=== PATIENT | female | born 1965 | race Caucasian/White ===

== ENCOUNTER 2019-09-07 09:26 | Day surgery (SDC) | payer BC ==
[2019-09-07] MEDS ORDERED: Decadron 4 MG INJ IV ONE (09:27)
[2019-09-07] MEDS ORDERED: Xylocaine-Mpf 2% 5 Ml Vial IJ ONE (09:27)
[2019-09-07] MEDS ORDERED: DIPRIVAN 200 MG/20 ML IV ONE (10:52)
[2019-09-07] MEDS ORDERED: Ketamine HCl 50 MG/ML ONE (10:52)
--- NOTE | 2019-09-07 14:32 | XRAY ---
30 seconds fluoroscopy time in surgery for left C2-C4 MBB.
--- NOTE | 2019-09-07 14:35 | XRAY ---
Indication: Left C2-C4 MBB. Intraoperative fluoroscopy was provided for 30 seconds. 4 digital spot images submitted for interpretation demonstrates posterior needle tips projecting over the expected course of the left C2-C4 nerve roots. Correlate with intraoperative findings/report.
[2019-09-07] MEDS ORDERED: Lactated Ringers 1,000 ML IV ONE (17:03)
== END 2019-09-07 11:30 | disposition home or self-care (01) ==
LOC: SDC-PAIN 09:26 → SDC 09:26 → SDC-PAIN 11:30
PROVIDERS: ATTEND Psychiatry & Neurology Pain Medicine
DX: M47.812 Spondylosis without myelopathy or radiculopathy, cervical region (principal); E11.9 Type 2 diabetes mellitus without complications; Z79.899 Other long term (current) drug therapy
CPT/HCPCS: 64490; 64491; 72020; 77002; 82962; J1100; J2704

== ENCOUNTER 2019-10-19 09:48 | Day surgery (SDC) | payer BC ==
[2019-10-19] MEDS ORDERED: Xylocaine-Mpf 2% 5 Ml Vial IJ ONE (09:49)
[2019-10-19] MEDS ORDERED: Decadron 4 MG INJ IV ONE (09:49)
[2019-10-19] MEDS ORDERED: DIPRIVAN 200 MG/20 ML IV ONE (11:57)
[2019-10-19] MEDS ORDERED: Ketamine HCl 50 MG/ML ONE (11:58)
--- NOTE | 2019-10-19 13:20 | XRAY ---
Indication: Right C2-C4 MBB. Intraoperative fluoroscopy was provided for 29 seconds. 2 digital spot images submitted for interpretation demonstrates posterior needle tips projecting over the expected course of the right C2-C4 nerve roots. Correlate with intraoperative findings/report.
--- NOTE | 2019-10-19 13:30 | XRAY ---
29 seconds fluoroscopy time in surgery for right C3-C4 MBB.
[2019-10-19] MEDS ORDERED: Lactated Ringers 1,000 ML IV ONE (13:31)
== END 2019-10-19 12:25 | disposition home or self-care (01) ==
LOC: SDC-PAIN 09:48
PROVIDERS: ATTEND Psychiatry & Neurology Pain Medicine
DX: M47.812 Spondylosis without myelopathy or radiculopathy, cervical region (principal); E11.9 Type 2 diabetes mellitus without complications
CPT/HCPCS: 64490; 64491; 72020; 77002; 82962; J1100; J2704

== ENCOUNTER 2019-11-08 10:34 | Observation (INO) | payer BC ==
--- NOTE | 2019-11-08 10:44 | ERPHSYRPT ---
- History of Present Illness Time Seen by Provider: 11/08/19 10:44 Source: patient Exam Limitations: no limitations Physician History: Patient is a 54-year-old female with a past medical history significant for diabetes mellitus, hyperlipidemia, prior hysterectomy for cervical cancer, chronic neck pain in which she takes [place], as well as obesity presents with a chief complaint of abdominal pain. Onset reported was around 1-2 o'clock this morning. She endorsed having a sharp/cramping pain that awoke her from sleeping. The pain is primarily located to her epigastrium in addition to her right upper quadrant but is now associated with left lower quadrant abdominal pain. The pain is constant and moderate to mild in severity. Her pain is associated with one episode of nonbilious/nonbloody vomiting. She denies obstipation, diarrhea, constipation, melena in addition to hematochezia. She denies known history of cholelithiasis or gallbladder disease. She denies alcohol use, IV drug abuse and tobacco use. Fever or chills. Associated Symptoms: nausea, vomiting, abdominal pain, No chest pain, No fever, No headaches Allergies/Adverse Reactions: No Known Drug Allergies Allergy (Verified 11/08/19 11:05) Home Medications: Atorvastatin Calcium [Lipitor] 20 mg PO HS 11/08/19 [History] Cyclobenzaprine HCl [Flexeril] 5 mg PO DAILY PRN 11/08/19 [History] Glyburide 5 mg PO DAILY 11/08/19 [History] Hydrocodone/APAP 5-325 Tab^^^ [Crook 5-325 Tablet^^^] 1 tab PO Q6HPRN PRN MDD 6 11/08/19 [History] - Review of Systems Constitutional: No Fever, No Chills Eyes: No Symptoms Ears, Nose, & Throat: No Symptoms Respiratory: No Symptoms, No Cough, No Cyanosis, No Dyspnea, No Dyspnea on Exertion ([place]) Cardiac: No Chest Pain, No Edema, No Palpitations Abdominal/Gastrointestinal: Abdominal Pain, Nausea, Vomiting, Appetite Changes, No Constipation, No Hematochezia, No Melena Genitourinary Symptoms: No Symptoms Musculoskeletal: No Symptoms Skin: No Symptoms Neurological: No Symptoms Psychological: No Symptoms Endocrine: No Symptoms All Other Systems: Reviewed and Negative - Past Medical History Pertinent Past Medical History: Yes Neurological History: No Pertinent History ENT History: No Pertinent History Cardiac History: No Pertinent History Respiratory History: No Pertinent History Endocrine Medical History: Diabetes Type II Musculoskeletal History: No Pertinent History GI Medical History: No Pertinent History, Hemorrhoids History: No Pertinent History Psycho-Social History: No Pertinent History Female Reproductive Disorders: Cervical Cancer - Past Surgical History Past Surgical History: Yes Neuro Surgical History: No Pertinent History Cardiac: No Pertinent History Respiratory: No Pertinent History Gastrointestinal: No Pertinent History, Hemorrhoidectomy Genitourinary: No Pertinent History Musculoskeletal: No Pertinent History Female Surgical History: Hysterectomy - Social History Smoking Status: Never smoker Exposure to second hand smoke: No Drug Use: none - Nursing Vital Signs Nursing Vital Signs: Initial Vital Signs Temperature 98.0 F 11/08/19 11:00 Pulse Rate 94 H 11/08/19 11:00 Respiratory Rate 20 11/08/19 11:00 Blood Pressure 175/113 11/08/19 11:00 O2 Sat by Pulse Oximetry 99 11/08/19 11:00 Pain Scale Pain Intensity 4 - Physical Exam General Appearance: mild distress, obese Eye Exam: PERRL/EOMI, eyes nml inspection, No scleral icterus, No EOM palsy/ anisocoria Ears, Nose, Throat Exam: normal ENT inspection, pharynx normal, moist mucous membranes Neck Exam: normal inspection, supple Respiratory Exam: normal breath sounds, lungs clear, airway intact, diminished breath sounds, No chest tenderness, No respiratory distress, No accessory muscle use Cardiovascular Exam: regular rate/rhythm, normal heart sounds, normal peripheral pulses, capillary refill <2 sec, No murmur, No friction rub Gastrointestinal/Abdomen Exam: soft, normal bowel sounds, tenderness (RUQ tenderness and LLQ tenderness. + Hyde sign), No distention, No mass, No ecchymosis, No pulsatile mass Pelvic Exam: not done, deferred Back Exam: normal inspection Extremity Exam: normal inspection Neurologic Exam: alert, oriented x 3, cooperative - Course Nursing assessment & vital signs reviewed: Yes EKG Interpreted by Me: RATE, Sinus Rhythm, Left [place] Deviation, NORMAL QRS, Other (Vent rate 81 bpm, ME interval 146 ms, QRS duration 76 ms, QT/QTc 382/441 ms, no evidence of acute myocardial ischemia or injury) - CT Exams Abdomen/Pelvis CT Interpretation: Other (Renal cyst, right adenoma) - Radiology Ultrasound Exam Gallbladder Ultrasound: tele radiology report (Impacted gallstone in gallbladder neck), No Mass, gall bladder stones (1.5 cm gallstone near the neck of the gallbladder. No gallbladder wall thickening or pericholecystic fluid. Common bile duct measures 7.7 mm and in intrahepatic biliary distention), Other Ordered Tests: Active Orders 24 hr Category Date Time Status Up With Assistance ROUTINE Activity 11/08/19 14:15 Active Code Status Order ROUTINE Care 11/08/19 14:15 Active EKG-ER Only STAT Care 11/08/19 10:53 Completed IV Care Q6H Care 11/08/19 14:15 Active IV Insertion STAT Care 11/08/19 10:53 Completed NPO (ED) STAT Care 11/08/19 10:53 Completed Vital Signs Q4H Care 11/08/19 14:15 Active Weight,Daily 0600 Care 11/08/19 14:15 Active NPO Diet 11/08/19 14:15 Active ABDOMEN AND PELVIS W CONTRAST [CT] Stat Exams 11/08/19 10:54 Completed GALLBLADDER [US] Stat Exams 11/08/19 12:43 Completed BMP Stat Lab 11/08/19 11:10 Completed CBC W DIFF AM.LAB Lab 11/09/19 04:00 Ordered CBC W DIFF Stat Lab 11/08/19 11:10 Completed CMP AM.LAB Lab 11/09/19 04:00 Ordered Hepatic Function Panel Stat Lab 11/08/19 11:10 Completed LIPASE Stat Lab 11/08/19 11:10 Completed UA W/RFX UR CULTURE Stat Lab 11/08/19 11:00 Completed Transfer Order Routine Transfer 11/08/19 Completed Medication Summary Generic Name Dose Route Start Last Admin Trade Name Freq PRN Reason Stop Dose Admin Hydrocodone Bitart/Acetaminophen 1 tab 11/08/19 17:52 Crook 5/325 Mg PO 11/13/19 17:51 Q4H PRN PRN PAIN Cyclobenzaprine HCl 5 mg 11/08/19 14:54 Cyclobenzaprine 10 Mg PO 12/08/19 14:53 QDP PRN Glyburide 5 mg 11/09/19 10:00 Micronase 5 Mg PO 12/09/19 09:59 DAILY GEMMA Sodium Chloride 1,000 mls @ 100 mls/hr 11/08/19 15:30 11/08/19 17:49 Sodium Chloride 0.9% 1000 Ml IV 12/08/19 15:29 100 mls/hr .Q10H GEMMA Administration Ketorolac Tromethamine 30 mg 11/08/19 14:15 11/08/19 17:40 Toradol 30 Mg Injection IV 11/13/19 14:14 30 mg Q6H PRN PRN Administration PAIN Morphine Sulfate 4 mg 11/08/19 14:15 11/08/19 14:37 Morphine Sulfate 4 Mg Inj IV 11/13/19 14:14 4 mg Q4H PRN PRN Administration PAIN Morphine Sulfate 3 mg 11/08/19 17:51 Morphine Sulfate 4 Mg Inj IV 11/13/19 17:50 Q1H PRN PAIN Non-Formulary Medication 1 each 11/09/19 10:00 Hold Metformin Products For 48 Hours 11/10/19 10:01 DAILY GEMMA Ondansetron HCl 4 mg 11/08/19 14:15 11/08/19 17:40 Zofran 4 Mg/2 Ml Vial IV 12/08/19 14:14 4 mg Q6H PRN PRN Administration NAUSEA/VOMITING Ondansetron HCl 4 mg 11/08/19 17:52 Zofran 4 Mg/2 Ml Vial IV 12/08/19 17:51 Q6H PRN PRN NAUSEA/VOMITING Simvastatin 20 mg 11/08/19 22:00 Zocor 20mg PO 12/08/19 21:59 HS GEMMA Discontinued Medications Generic Name Dose Route Start Last Admin Trade Name Freq PRN Reason Stop Dose Admin Bupivacaine HCl Confirm 11/08/19 15:35 Sensorcaine 0.25% 10 Ml Administered 11/08/19 15:36 Dose 10 ml .ROUTE .STK-MED ONE Dexamethasone Sodium Phosphate Confirm 11/08/19 16:47 Decadron 4 Mg Inj Administered 11/08/19 16:48 Dose 8 mg .ROUTE .STK-MED ONE Esmolol HCl Confirm 11/08/19 16:27 Brevibloc 100 Mg/10 Ml Administered 11/08/19 16:28 Dose 100 mg IV .STK-MED ONE Fentanyl Citrate Confirm 11/08/19 15:52 Sublimaze 100 Mcg/2 Ml Administered 11/08/19 15:53 Dose 100 mcg .ROUTE .STK-MED ONE Dextrose/Lactated Ringer's 1,000 mls @ 100 mls/hr 11/08/19 14:15 11/08/19 14: 36 Dextrose 5%-Lr Iv Solution 1000 Ml IV 12/08/19 14:14 100 mls/hr .Q10H GEMMA Administration Cefoxitin Sodium 2 gm in 50 mls @ 100 mls/hr 11/08/19 16:00 11/08/19 15:36 Mefoxin 2 Gm Premix IV 11/08/19 18:00 100 mls/hr ONCALLTOOR GEMMA Administration Lactated Ringer's Confirm 11/08/19 15:35 Lactated Ringers Administered 11/08/19 15:36 Dose 1,000 mls @ ud IV .STK-MED ONE Ketorolac Tromethamine 15 mg 11/08/19 10:53 11/08/19 11:14 Toradol 30 Mg Injection IV 11/08/19 10:54 15 mg STAT ONE Administration Ketorolac Tromethamine Confirm 11/08/19 11:13 Toradol 30 Mg Injection Administered 11/08/19 11:14 Dose 30 mg .ROUTE .STK-MED ONE Morphine Sulfate 4 mg 11/08/19 10:53 11/08/19 11:14 Morphine Sulfate 4 Mg Inj IV 11/08/19 10:54 4 mg STAT ONE Administration Morphine Sulfate Confirm 11/08/19 11:13 Morphine Sulfate 4 Mg Inj Administered 11/08/19 11:14 Dose 4 mg .ROUTE .STK-MED ONE Ondansetron HCl 4 mg 11/08/19 10:53 11/08/19 11:14 Zofran 4 Mg/2 Ml Vial IV 11/08/19 10:54 4 mg STAT ONE Administration Ondansetron HCl Confirm 11/08/19 11:12 Zofran 4 Mg/2 Ml Vial Administered 11/08/19 11:13 Dose 4 mg .ROUTE .STK-MED ONE Ondansetron HCl Confirm 11/08/19 16:47 Zofran 4 Mg/2 Ml Vial Administered 11/08/19 16:48 Dose 4 mg .ROUTE .STK-MED ONE Propofol Confirm 11/08/19 15:52 Diprivan 200 Mg/20 Ml Administered 11/08/19 15:53 Dose 200 mg IV .STK-MED ONE Rocuronium [place] Confirm 11/08/19 15:52 Zemuron 100 Mg/10 Ml Administered 11/08/19 15:53 Dose 30 mg .ROUTE .STK-MED ONE Succinylcholine Chloride Confirm 11/08/19 15:52 Quelicin Fliptop 200 Mg/10 Ml Administered 11/08/19 15:53 Dose 100 mg .ROUTE .STK-MED ONE Sugammadex Sodium Confirm 11/08/19 16:47 Bridion 200mg/2ml Administered 11/08/19 16:48 Dose 200 mg IV .STK-MED ONE Lab/Rad Data: Laboratory Result Diagrams 11/08/19 11:10 11/08/19 11:10 Laboratory Results 11/08/19 11/08/19 11/08/19 Range/Units 11:10 11:10 11:00 WBC 11.0 H (4.0-10.5) K/mm3 RBC 4.97 (4.1-5.4) M/mm3 Hgb 14.0 (12.0-16.0) gm/dl Hct 42.2 (35-47) % MCV 84.9 (78-100) fl MCH 28.2 (26-32) pg MCHC 33.2 (32-36) g/dl RDW 14.0 (11.5-14.0) % Plt Count 371 (150-450) K/mm3 MPV 9.3 (7.5-11.0) fl Gran % 76.5 H (36.0-66.0) % Eos # (Auto) 0.03 (0-0.5) Absolute Lymphs (auto) 2.11 (1.0-4.6) Absolute Monos (auto) 0.41 (0.0-1.3) Lymphocytes % 19.1 L (24.0-44.0) % Monocytes % 3.7 (0.0-12.0) % Eosinophils % 0.3 (0.00-5.0) % Basophils % 0.4 (0.0-0.4) % Absolute Granulocytes 8.43 H (1.4-6.9) Basophils # 0.04 (0-0.4) Sodium 138 (137-145) mmol/L Potassium 3.9 (3.5-5.1) mmol/L Chloride 100 (98-107) mmol/L Carbon Dioxide 25 (22-30) mmol/L Anion Gap 16.6 H (5-15) MEQ/L BUN 11 (7-17) mg/dL Creatinine 0.64 (0.52-1.04) mg/dL Estimated GFR > 60.0 ML/MIN Glucose 218 H (74-106) mg/dL Calcium 10.6 H (8.4-10.2) mg/dL Total Bilirubin 0.80 (0.2-1.3) mg/dL Direct Bilirubin 0.3 (0.0-0.4) mg/dL AST 23 (14-36) U/L ALT 24 (0-35) U/L Alkaline Phosphatase 112 (38-126) U/L Serum Total Protein 9.1 H (6.3-8.2) g/dL Albumin 4.9 (3.5-5.0) g/dL Lipase 58 (23-300) U/L Urine Color YELLOW (YELLOW) Urine Appearance CLEAR (CLEAR) Urine pH 6.0 (5-6) Ur Specific [place] 1.016 (1.005-1.025) Urine Protein 30 (Negative) Urine Ketones NEGATIVE (NEGATIVE) Urine Blood NEGATIVE (0-5) Vincent/ul Urine Nitrite NEGATIVE (NEGATIVE) Urine Bilirubin NEGATIVE (NEGATIVE) Urine Urobilinogen NEGATIVE (0-1) mg/dL Ur Leukocyte Esterase NEGATIVE (NEGATIVE) Urine WBC (Auto) 0-2 (0-5) /HPF Urine RBC (Auto) 0-2 (0-2) /HPF U Hyaline Cast (Auto) 0-2 (0-2) /LPF U Epithel Cells (Auto) RARE (FEW) /HPF Urine Bacteria (Auto) NONE (NEGATIVE) /HPF Other Casts (Auto) NEGATIVE (NEGATIVE) /LPF Urine Mucus (Auto) SLIGHT (NEGATIVE) /HPF Urine Culture Reflexed NO (NO) Urine Glucose NEGATIVE (NEGATIVE) mg/dL - Progress Progress: unchanged Progress Note: 11/08/19 21:31 Nontoxic in appearance. Labs, CT and ultrasound were reviewed. It appears the patient has an impacted gallstone in the neck of the gallbladder which is likely the cause of her symptoms at this time. Ultimately, the patient was admitted to the medicine service with the plan for general surgery with a consult for possible cholecystectomy. She did not appear to have an infection at this time, specifically cholecystitis or any evidence to suggest choledocholithiasis. The patient was updated with her plan for admission and agreed. She stated her pain had improved but continue to persist. Discussed with : Luigi, Janell (Dr. Bah with general surgery. Dr. Bah with general surgery agrees to consult and recommends medical admission. Dr. Martinez agreed to admit.) Will see patient in: hospital (observation) Counseled pt/family regarding: lab results, diagnosis, rad results - Departure Departure Disposition: Observation Clinical Impression: Gallstone (impacted), Cholelithiasis, Renal cyst, Adenoma Condition: Stable Critical Care Time: No
[2019-11-08] MEDS ORDERED: Zofran 4 MG/2 ML VIAL IV ONE (10:53)
[2019-11-08] MEDS ORDERED: MORPHINE SULFATE 4 MG INJ IV ONE (10:53)
[2019-11-08] MEDS ORDERED: TORAdol 30 mg Injection IV ONE (10:53)
[2019-11-08] MEDS ORDERED: Zofran 4 MG/2 ML VIAL ONE ×2 (11:12→16:47)
[2019-11-08] MEDS ORDERED: MORPHINE SULFATE 4 MG INJ ONE (11:13)
[2019-11-08] MEDS ORDERED: TORAdol 30 mg Injection ONE (11:13)
[2019-11-08 11:18] LABS: Absolute Neutrophil Ct (ANC) 8.43 (1.4-6.9); BASOPHIL % 0.4 % (0.0-0.4); Basophil (Absolute #) 0.04 (0-0.4); Eosinophil % 0.3 % (0.00-5.0); Eosinophil (Absolute #) 0.03 (0-0.5); Hematocrit 42.2 % (35-47); Lymphocyte (Absolute #) 2.11 (1.0-4.6); Lymphocytes % 19.1 % (24.0-44.0); Mean Cell Volume 84.9 fl (78-100); Mean Corpuscular Hemoglobin 28.2 pg (26-32); Mean Corpuscular Hgb Concent. 33.2 g/dl (32-36); Mean Platelet Volume 9.3 fl (7.5-11.0); Monocyte (Absolute #) 0.41 (0.0-1.3); Monocytes % 3.7 % (0.0-12.0); Neutrophil % 76.5 % (36.0-66.0); Platelet Count 371 K/mm3 (150-450); Red Blood Count 4.97 M/mm3 (4.1-5.4)
[2019-11-08 11:20] LABS: Appearance CLEAR (CLEAR); Bilirubin NEGATIVE (NEGATIVE); Blood NEGATIVE Ery/ul (0-5); Epithelial Cells RARE /HPF (FEW); Glucose NEGATIVE (NEGATIVE); Hyaline Casts 0-2 /LPF (0-2); Ketones NEGATIVE (NEGATIVE); Leukocyte Esterase NEGATIVE (NEGATIVE); Mucus SLIGHT /HPF (NEGATIVE); Nitrite NEGATIVE (NEGATIVE); Protein,Urine Dip 30 (Negative); Specific Gravity 1.016 (1.005-1.025); Urobilinogen NEGATIVE mg/dL (0-1)
[2019-11-08 11:24] LABS: RBC 0-2 /HPF (0-2); WBC 0-2 /HPF (0-5)
[2019-11-08 11:34] LABS: ALBUMIN 4.9 g/dL (3.5-5.0); ALKALINE PHOSPHATASE 112 U/L (38-126); ANION GAP 16.6 MEQ/L (5-15); BLOOD UREA NITROGEN 11 mg/dL (7-17); CHLORIDE 100 mmol/L (98-107); Calcium 10.6 mg/dL (8.4-10.2); Carbon Dioxide 25 mmol/L (22-30); Creatinine 1 0.64 mg/dL (0.52-1.04); Direct Bilirubin 0.3 mg/dL (0.0-0.4); Glucose 218 mg/dL (74-106); LIPASE 58 U/L (23-300); Potassium 3.9 mmol/L (3.5-5.1); SGOT/AST 23 U/L (14-36); SGPT/ALT 24 U/L (0-35); SODIUM 138 mmol/L (137-145); Total Protein 9.1 g/dL (6.3-8.2)
--- NOTE | 2019-11-08 12:20 | XRAY ---
Indication: Abdomen pain. Nausea and vomiting. Multiple contiguous axial images obtained through the abdomen and pelvis using 80 cc Isovue 370 contrast only. Comparison: December 19, 2015 Lung bases clear with stable left lower lobe bullae. Heart is not enlarged. Noncontrasted stomach and bowel loops appear nonobstructed. Normal appendix. There is minimal/mild diffuse scattered colonic fecal debris greatest in the ascending and transverse colon. No free fluid/air. Stable [address] proven right adrenal adenoma. Right kidney again demonstrates a few cysts, largest a peripelvic cyst measuring 2.8 cm. Previous hysterectomy with multiple bilateral pelvic surgical clips. Remaining liver, gallbladder, pancreas, spleen, adrenal glands, kidneys, ureters, bladder, and aorta appear unremarkable. No pathologic retroperitoneal lymphadenopathy. Osseous structures intact. Impression: 1. Mild fecal stasis without obstruction. 2. Stable right renal cysts and right adrenal adenoma. 3. Remaining CT abdomen/pelvis with contrast exam is negative
--- NOTE | 2019-11-08 14:11 | XRAY ---
Indication: Right upper quadrant abdominal pain. Two-dimensional gallbladder sonogram performed. Comparison: None Pancreas not well-seen due to overlying bowel gas. Gallbladder demonstrates 1.5 cm stone near the neck of the gallbladder. No gallbladder wall thickening or pericholecystic fluid. Common bile duct measures 7.7 mm. No intrahepatic biliary distention. Visualized portions of liver unremarkable. Right kidney measures 10.3 cm in length with a 3 cm upper pole cyst. Impression: 1. Cholelithiasis without cholecystitis. 2. Nonvisualization of the pancreas. 3. Incidental right renal cyst
[2019-11-08] MEDS ORDERED: Zofran 4 MG/2 ML VIAL IV PRN ×2 (14:15→17:52)
[2019-11-08] MEDS ORDERED: TORAdol 30 mg Injection IV PRN (14:15)
[2019-11-08] MEDS ORDERED: Dextrose 5%-Lr IV Solution 1000 ML 1,000 ML IV SCH (14:15)
[2019-11-08] MEDS ORDERED: MORPHINE SULFATE 4 MG INJ IV PRN ×2 (14:15→17:51)
[2019-11-08] MEDS ORDERED: NON-FORMULARY ITEM (Cyclobenzaprine Hcl [Flexeril] 5 MG) PO PRN (14:50)
[2019-11-08] MEDS ORDERED: Cyclobenzaprine 10 MG PO PRN (14:54)
[2019-11-08] MEDS: Sodium Chloride 0.9% 1000 ML 1,000 ML IV SCH ×2 (15:34→17:49)
[2019-11-08] MEDS ORDERED: Sensorcaine 0.25% 10 ML ONE (15:35)
[2019-11-08] MEDS ORDERED: Lactated Ringers 1,000 ML IV ONE (15:35)
[2019-11-08] MEDS ORDERED: Quelicin Fliptop 200 MG/10 ML ONE (15:52)
[2019-11-08] MEDS ORDERED: DIPRIVAN 200 MG/20 ML IV ONE (15:52)
[2019-11-08] MEDS ORDERED: SUBLIMAZE 100 MCG/2 ML ONE (15:52)
[2019-11-08] MEDS ORDERED: Zemuron 100 MG/10 ML ONE (15:52)
[2019-11-08] MEDS ORDERED: MEFOXIN 2 GM PREMIX** 2 GM/50 ML ML IV SCH (16:00)
[2019-11-08] MEDS ORDERED: BREVIBLOC 100 MG/10 ML IV ONE (16:27)
[2019-11-08] MEDS ORDERED: BRIDION 200MG/2ML IV ONE (16:47)
[2019-11-08] MEDS ORDERED: Decadron 4 MG INJ ONE (16:47)
[2019-11-08] MEDS ORDERED: ZOCOR 20MG PO SCH (22:00)
[2019-11-08] MEDS ORDERED: NON-FORMULARY ITEM (Atorvastatin Calcium [Lipitor] 20 MG) PO SCH (22:00)
[2019-11-08] MEDS: NORCO 5/325 MG PO PRN (22:44)
[2019-11-09 05:10] LABS: ALBUMIN 3.9 g/dL (3.5-5.0); ALKALINE PHOSPHATASE 85 U/L (38-126); ANION GAP 13.2 MEQ/L (5-15); BLOOD UREA NITROGEN 13 mg/dL (7-17); CHLORIDE 101 mmol/L (98-107); Calcium 8.9 mg/dL (8.4-10.2); Carbon Dioxide 25 mmol/L (22-30); Creatinine 1 0.63 mg/dL (0.52-1.04); Glucose 270 mg/dL (74-106); Potassium 4.3 mmol/L (3.5-5.1); SGOT/AST 20 U/L (14-36); SGPT/ALT 23 U/L (0-35); SODIUM 135 mmol/L (137-145); Total Protein 7.5 g/dL (6.3-8.2)
[2019-11-09 05:13] LABS: Absolute Neutrophil Ct (ANC) 8.47 (1.4-6.9); BASOPHIL % 0.1 % (0.0-0.4); Basophil (Absolute #) 0.01 (0-0.4); Eosinophil % 0.1 % (0.00-5.0); Eosinophil (Absolute #) 0.01 (0-0.5); Hematocrit 38.6 % (35-47); Hemoglobin 12.6 gm/dl (12.0-16.0); Lymphocyte (Absolute #) 1.29 (1.0-4.6); Mean Cell Volume 86.7 fl (78-100); Mean Corpuscular Hemoglobin 28.3 pg (26-32); Mean Corpuscular Hgb Concent. 32.6 g/dl (32-36); Mean Platelet Volume 9.6 fl (7.5-11.0); Monocyte (Absolute #) 0.13 (0.0-1.3); Monocytes % 1.3 % (0.0-12.0); Neutrophil % 85.5 % (36.0-66.0); Platelet Count 357 K/mm3 (150-450); Red Blood Count 4.45 M/mm3 (4.1-5.4); Red Cell Distribution Width 14.2 % (11.5-14.0); White Blood Count 9.9 K/mm3 (4.0-10.5)
[2019-11-09] MEDS ORDERED: MORPHINE SULFATE 4 MG INJ IV PRN (07:00)
[2019-11-09] MEDS: NORCO 5/325 MG PO PRN (08:12)
[2019-11-09] MEDS ORDERED: HOLD METFORMIN PRODUCTS FOR 48 HOURS MC SCH (10:00)
[2019-11-09] MEDS ORDERED: Micronase 5 MG PO SCH (10:00)
--- NOTE | 2019-11-09 11:19 | CONS ---
CONSULT DATE: 11/08/2019 HISTORY: The patient is a 54 year-old female who since midnight or 0100 hours with right upper quadrant pain associated with nausea and vomiting. She had intractable symptoms in the emergency room and noted to have cholelithiasis. There was question where she had stones packed in the gallbladder. She failed to improve so felt she needed to be admitted. I was asked for surgical consult. PAST MEDICAL HISTORY: Diabetes. Hyperlipidemia. She had cervical cancer in the past. She had some chronic neck pain which she takes [place] for. PAST SURGICAL HISTORY: Hemorrhoid intervention. Hysterectomy for cervical cancer in the past. She denied any upper abdominal procedures. MEDICATIONS: She has been on Lipitor, Flexeril, Glyburide, hydrocodone PRN for neck pain. ALLERGIES: NKDA. SOCIAL HISTORY: She denies any alcohol abuse, denies any current smoking REVIEW OF SYSTEMS: Fourteen systems reviewed. No chest pain or palpitations. Otherwise pertinent for as noted above. LAB DATA AND TESTS: Her liver function test within normal limits. Lipase is normal at 58. CT scan showed 1.5 cm stone in the neck of the gallbladder. No gallbladder wall thickening. PHYSICAL EXAMINATION: Her temperature was 98F, blood pressure 175/113, pulse 94 earlier. GENERAL: No acute distress. HEENT: Sclera nonicteric. NECK: No JVD. CHEST: Equal excursion, nonlabored breathing. CVS: Regular rate and rhythm. ABDOMEN: Soft. Tenderness right upper quadrant. No peritoneal signs. EXTREMITIES: No significant edema. NEURO: Alert, moving extremities grossly symmetrically. No gross motor deficits noted. IMPRESSION: Symptomatic cholelithiasis, acute exacerbation of chronic cholecystitis. I feel the patient will benefit from cholecystectomy. Risks and benefits explained in detail including but not limited to bleeding or infection, risk of trocar injury or hernia, risk of bowel, bladder or blood vessel injury, risk of bile leak, bile duct injury, retained stone or sludge possibly requiring further procedure either open or ERCP. General risk of anesthesia, deep venous thrombosis, pulmonary embolism, pneumonia, perioperative risk of aches, pains, bloating, constipation and/or loose stools possibly even chronic in nature. She understands as well as the possibility of no improvement with the procedure possibly requiring other work up or studies. She also understands the possibility of the need to convert to open procedure. She agrees to the planned procedure, will proceed with laparoscopic cholecystectomy possible open when OR time available.
--- NOTE | 2019-11-09 11:31 | OP ---
SURGERY DATE/TIME: 11/08/2019 1908 PREOPERATIVE DIAGNOSIS: Symptomatic cholelithiasis, acute exacerbation of chronic cholecystitis. POSTOPERATIVE DIAGNOSIS: Symptomatic cholelithiasis, acute exacerbation of chronic cholecystitis. PROCEDURE: Laparoscopic cholecystectomy. SURGEON: Dr. Chidi Ponce. ANESTHESIA: General. ESTIMATED BLOOD LOSS: Minimal. INDICATIONS: As noted above. Risks and benefits explained in detail but not limited to and consent obtained. DESCRIPTION OF PROCEDURE AND FINDINGS: The patient was taken to the operating room. General anesthesia induced. Abdomen prepped and draped in the usual sterile fashion. After official time out and no disagreement with planned procedure, a transverse incision made at the supraumbilical area. Fascia grasped and pulled upward. Veress needle inserted and tested with saline. Pneumoperitoneum accomplished insufflating opening pressure of 0-15. A 5 mm bladeless port and camera inserted without difficulty followed by two - 5 mm right upper quadrant ports and 11 mm epigastric port. The gallbladder grasped. It is quite distended. Dissected from posterior, lateral to anterior fashion. It was quite vascular but slowly and carefully cystic duct and infundibular and main cystic artery isolated until the critical view obtained both anteriorly and posteriorly. Once this was accomplished cystic duct and cystic artery clipped x3 and divided in usual fashion. A little side branch going into infundibulum that was oozing was also clipped. The gallbladder slowly and carefully dissected free from its dense attachment to liver bed. It was quite vascular requiring clipping additional oozing side branches. Just prior to releasing from final attachments to the anterior edge of the liver, the liver bed re-inspected. Clips noted in place cystic duct and cystic artery stumps. No signs of any active bleeding or bile leakage. One grasper tore a small pinhole in the gallbladder spilling a small amount of clear bile. There was no evidence of any stone spillage. Gallbladder suctioned clear and released from final attachments, placed in the bag provided by the hospital pulled up and out the epigastric wound and passed off. Copious amount of irrigation accomplished lateral to the liver and subhepatic space irrigating until clear. Clips noted in place cystic duct and cystic artery stump. No signs of any active bleeding or bile leakage. It was felt there is no benefit from drain placement at this point. Fascial defect 07/08 closed with puncture closure device with #1 Vicryl under direct vision of the camera. Pneumoperitoneum decompressed. The wound irrigated out. Skin incision closed with 4-0 Vicryl. Steri-Strips and sterile dressing applied. 0.25% Marcaine local injected along the skin incision fascial defect. The patient tolerated the procedure well. There were no immediate complications. She did not have any family here.
[2019-11-09 12:24] VITALS: BP 134/64; PULSE 91; O2SAT 95
--- NOTE | 2019-11-09 12:28 | PCM.SSS ---
History of Present Illness - Chief Complaint Chief Complaint: right upper abdominal pain History of Present Illness: is a 54-year-old female with a past medical history significant for diabetes mellitus, hyperlipidemia, prior hysterectomy for cervical cancer, chronic neck pain in which she takes Oblong, as well as obesity presents with a chief complaint of abdominal pain. Onset reported was around 1-2 o'clock this morning. She endorsed having a sharp/cramping pain that awoke her from sleeping. The pain is primarily located to her epigastrium in addition to her right upper quadrant but is now associated with left lower quadrant abdominal pain. The pain is constant and moderate to mild in severity. Her pain is associated with one episode of nonbilious/nonbloody vomiting. She denies obstipation, diarrhea, constipation, melena in addition to hematochezia. She denies known history of cholelithiasis or gallbladder disease. She denies alcohol use, IV drug abuse and tobacco use. Fever or chills. - Review of Systems Constitutional: No Fever, No Chills Eyes: No Symptoms Ears, Nose, & Throat: No Symptoms Respiratory: No Cough, No Short Of Breath Cardiac: No Chest Pain, No Edema, No Syncope Abdominal/Gastrointestinal: No Abdominal Pain, No Nausea, No Vomiting, No Diarrhea Genitourinary Symptoms: No Dysuria Musculoskeletal: No Back Pain, No Neck Pain Skin: No Rash Neurological: No Dizziness, No Focal Weakness, No Sensory Changes Psychological: No Symptoms Endocrine: No Symptoms Hematologic/Lymphatic: No Symptoms Immunological/Allergic: No Symptoms Medications & Allergies Home Medications: Home Medication List Atorvastatin Calcium [Lipitor] 20 mg PO HS 11/08/19 [History Confirmed 11/08/19] Cyclobenzaprine HCl [Flexeril] 5 mg PO DAILY PRN 11/08/19 [History Confirmed 08/17] Glyburide 5 mg PO DAILY 11/08/19 [History Confirmed 11/08/19] Hydrocodone/APAP 5-325 Tab^^^ [Oblong 5-325 Tablet^^^] 1 each PO Q4HPRN PRN #22 tablet MDD 6 11/08/19 [Rx] Hydrocodone/APAP 5-325 Tab^^^ [Oblong 5-325 Tablet^^^] 1 tab PO Q6HPRN PRN MDD 6 11/08/19 [History Confirmed 11/08/19] Allergies/Adverse Reactions: Allergies Allergy/AdvReac Type Severity Reaction Status Date / Time No Known Drug Allergies Allergy Verified 11/08/19 11:05 - Past Medical History Past Medical History: Yes Neurological History: No Pertinent History ENT History: No Pertinent History Cardiac History: No Pertinent History Respiratory History: No Pertinent History Endocrine Medical History: Diabetes Type II Musculoskelatal History: No Pertinent History GI Medical History: No Pertinent History, Hemorrhoids History: No Pertinent History Pyscho-Social History: No Pertinent History Reproductive Disorders: Cervical Cancer - Female History Hx Last Menstrual Period: 12 years hysterectomy Are you now?: No - Past Surgical History Past Surgical History: Yes Neuro Surgical History: No Pertinent History Cardiac History: No Pertinent History Respiratory Surgery: No Pertinent History GI Surgical History: No Pertinent History, Hemorrhoidectomy Genitourinary Surgical Hx: No Pertinent History Musculskeletal Surgical Hx: No Pertinent History Female Surgical History: Hysterectomy - Social History Smoking Status: Never smoker Exposure to second hand smoke: No Alcohol: Rarely Drug Use: none - Physical Exam Vital Signs: Vital Signs - 24 hr Temp Pulse Resp BP Pulse Ox 11/09/19 12:00 98.3 F 91 H 18 134/64 95 11/09/19 07:19 97.9 F 90 18 116/72 96 11/09/19 04:00 97.8 F 80 19 139/72 95 11/09/19 00:23 98.5 F 87 18 133/75 96 11/08/19 20:50 99.2 F 85 17 143/78 95 11/08/19 19:50 98.1 F 89 18 134/75 92 L 11/08/19 18:50 98.1 F 80 19 150/73 93 L 11/08/19 18:20 98.0 F 79 18 150/75 92 L 11/08/19 17:50 98.0 F 82 18 158/74 94 L 11/08/19 17:35 97.9 F 92 H 18 192/95 95 11/08/19 15:26 98.4 F 83 18 147/88 97 11/08/19 14:15 98.4 F 83 18 147/88 97 11/08/19 13:41 97.6 F 80 18 170/98 98 11/08/19 12:51 97.9 F 88 18 168/96 98 General Appearance: no apparent distress, alert Neurologic Exam: alert, oriented x 3, cooperative, normal mood/affect, nml cerebellar function, nml station & gait, sensation nml, No motor deficits Eye Exam: PERRL/EOMI, eyes nml inspection Ears, Nose, Throat Exam: normal ENT inspection, TMs normal, pharynx normal, moist mucous membranes Neck Exam: normal inspection, non-tender, supple, full range of motion Respiratory Exam: normal breath sounds, lungs clear, No respiratory distress Cardiovascular Exam: regular rate/rhythm, normal heart sounds, normal peripheral pulses Gastrointestinal/Abdomen Exam: soft, normal bowel sounds, No tenderness, No mass Back Exam: normal inspection, normal range of motion, No CVA tenderness, No vertebral tenderness Extremity Exam: normal inspection, normal range of motion, pelvis stable Skin Exam: normal color, warm, dry, No rash Lymphatic Exam: No adenopathy Results - Labs Lab/Micro Results: Lab Results-Last 24 Hours 11/09/19 11/09/19 Range/Units 04:15 04:15 WBC 9.9 (4.0-10.5) K/mm3 RBC 4.45 (4.1-5.4) M/mm3 Hgb 12.6 (12.0-16.0) gm/dl Hct 38.6 (35-47) % MCV 86.7 (78-100) fl MCH 28.3 (26-32) pg MCHC 32.6 (32-36) g/dl RDW 14.2 H (11.5-14.0) % Plt Count 357 (150-450) K/mm3 MPV 9.6 (7.5-11.0) fl Gran % 85.5 H (36.0-66.0) % Eos # (Auto) 0.01 (0-0.5) Absolute Lymphs (auto) 1.29 (1.0-4.6) Absolute Monos (auto) 0.13 (0.0-1.3) Lymphocytes % 13.0 L (24.0-44.0) % Monocytes % 1.3 (0.0-12.0) % Eosinophils % 0.1 (0.00-5.0) % Basophils % 0.1 (0.0-0.4) % Absolute Granulocytes 8.47 H (1.4-6.9) Basophils # 0.01 (0-0.4) Sodium 135 L (137-145) mmol/L Potassium 4.3 (3.5-5.1) mmol/L Chloride 101 (98-107) mmol/L Carbon Dioxide 25 (22-30) mmol/L Anion Gap 13.2 (5-15) MEQ/L BUN 13 (7-17) mg/dL Creatinine 0.63 (0.52-1.04) mg/dL Estimated GFR > 60.0 ML/MIN Glucose 270 H (74-106) mg/dL Calcium 8.9 D (8.4-10.2) mg/dL Total Bilirubin 0.60 (0.2-1.3) mg/dL AST 20 (14-36) U/L ALT 23 (0-35) U/L Alkaline Phosphatase 85 (38-126) U/L Serum Total Protein 7.5 (6.3-8.2) g/dL Albumin 3.9 (3.5-5.0) g/dL - Radiology Impressions Radiology Exams & Impressions: Radiology Procedures Category Date Time Status ABDOMEN AND PELVIS W CONTRAST [CT] Stat Exams 11/08/19 10:54 Completed GALLBLADDER [US] Stat Exams 11/08/19 12:43 Completed - Other Procedures and Tests Respiratory Therapy 11/08/19 15:11 EKG ROUTINE Assessment/Plan (1) S/P cholecystectomy Current Visit: Yes Status: Acute Code(s): Z90.49 - ACQUIRED ABSENCE OF OTHER SPECIFIED PARTS OF DIGESTIVE TRACT (2) Cholelithiasis Current Visit: Yes Status: Acute Qualifiers: Cholelithiasis location: gallbladder Cholecystitis acuity: acute Biliary obstruction: without biliary obstruction Assessment & Plan: Chief Complaint Diagnosis Impacted gallstone in gallbladder ampula Allergies Allergy/AdvReac Type Severity Reaction Status Date / Time No Known Drug Allergies Allergy Verified 11/08/19 11:05 Vital Signs (Last 24 hours) Temp Pulse Resp BP Pulse Ox 11/09/19 12:00 98.3 F 91 H 18 134/64 95 11/09/19 07:19 97.9 F 90 18 116/72 96 11/09/19 04:00 97.8 F 80 19 139/72 95 11/09/19 00:23 98.5 F 87 18 133/75 96 11/08/19 20:50 99.2 F 85 17 143/78 95 11/08/19 19:50 98.1 F 89 18 134/75 92 L 11/08/19 18:50 98.1 F 80 19 150/73 93 L 11/08/19 18:20 98.0 F 79 18 150/75 92 L 11/08/19 17:50 98.0 F 82 18 158/74 94 L 11/08/19 17:35 97.9 F 92 H 18 192/95 95 11/08/19 15:26 98.4 F 83 18 147/88 97 11/08/19 14:15 98.4 F 83 18 147/88 97 11/08/19 13:41 97.6 F 80 18 170/98 98 11/08/19 12:51 97.9 F 88 18 168/96 98 Home Medications Medication Instructions Recorded Confirmed Last Taken Type Atorvastatin Calcium [Lipitor] 20 mg PO HS 11/08/19 11/08/19 11/08/19 History 20 Cyclobenzaprine HCl [Flexeril] 5 mg PO DAILY PRN 11/08/19 11/08/19 11/08/19 History 5 Glyburide 5 mg PO DAILY 11/08/19 11/08/19 11/07/19 History 5 Hydrocodone/APAP 5-325 Tab^^^ 1 each PO Q4HPRN PRN #22 tablet 11/08/19 Unknown Rx [Oblong 5-325 Tablet^^^] MDD 6 Hydrocodone/APAP 5-325 Tab^^^ 1 tab PO Q6HPRN PRN MDD 6 11/08/19 11/08/19 History [Oblong 5-325 Tablet^^^] 1 Current Medications Generic Name Dose Route Start Last Admin Trade Name Freq PRN Reason Stop Dose Admin Hydrocodone Bitart/Acetaminophen 1 tab 11/08/19 17:52 11/09/19 08:12 Oblong 5/325 Mg PO 11/13/19 17:51 1 tab Q4H PRN PRN Administration PAIN Cyclobenzaprine HCl 5 mg 11/08/19 14:54 Cyclobenzaprine 10 Mg PO 12/08/19 14:53 QDP PRN Glyburide 5 mg 11/09/19 10:00 11/09/19 08:30 Micronase 5 Mg PO 12/09/19 09:59 5 mg DAILY GEMMA Administration Sodium Chloride 1,000 mls @ 100 mls/hr 11/08/19 15:30 11/08/19 17:49 Sodium Chloride 0.9% 1000 Ml IV 12/08/19 15:29 100 mls/hr .Q10H GEMMA Administration Morphine Sulfate 3 mg 11/09/19 07:00 Morphine Sulfate 4 Mg Inj IV 11/13/19 17:50 Q1H PRN PRN PAIN Non-Formulary Medication 1 each 11/09/19 10:00 11/09/19 08:32 Hold Metformin Products For 48 Hours 11/10/19 10:01 1 each DAILY GEMMA Administration Ondansetron HCl 4 mg 11/08/19 17:52 Zofran 4 Mg/2 Ml Vial IV 12/08/19 17:51 Q6H PRN PRN NAUSEA/VOMITING Simvastatin 20 mg 11/08/19 22:00 11/08/19 22:41 Zocor 20mg PO 12/08/19 21:59 20 mg HS GEMMA Administration Discontinued Medications Generic Name Dose Route Start Last Admin Trade Name Freq PRN Reason Stop Dose Admin Bupivacaine HCl Confirm 11/08/19 15:35 Sensorcaine 0.25% 10 Ml Administered 11/08/19 15:36 Dose 10 ml .ROUTE .STK-MED ONE Dexamethasone Sodium Phosphate Confirm 11/08/19 16:47 Decadron 4 Mg Inj Administered 11/08/19 16:48 Dose 8 mg .ROUTE .STK-MED ONE Esmolol HCl Confirm 11/08/19 16:27 Brevibloc 100 Mg/10 Ml Administered 11/08/19 16:28 Dose 100 mg IV .STK-MED ONE Fentanyl Citrate Confirm 11/08/19 15:52 Sublimaze 100 Mcg/2 Ml Administered 11/08/19 15:53 Dose 100 mcg .ROUTE .STK-MED ONE Dextrose/Lactated Ringer's 1,000 mls @ 100 mls/hr 11/08/19 14:15 11/08/19 14: 36 Dextrose 5%-Lr Iv Solution 1000 Ml IV 12/08/19 14:14 100 mls/hr .Q10H GEMMA Administration Cefoxitin Sodium 2 gm in 50 mls @ 100 mls/hr 11/08/19 16:00 11/08/19 15:36 Mefoxin 2 Gm Premix IV 11/08/19 18:00 100 mls/hr ONCALLTOOR GEMMA Administration Lactated Ringer's Confirm 11/08/19 15:35 Lactated Ringers Administered 11/08/19 15:36 Dose 1,000 mls @ ud IV .STK-MED ONE Ketorolac Tromethamine 15 mg 11/08/19 10:53 11/08/19 11:14 Toradol 30 Mg Injection IV 11/08/19 10:54 15 mg STAT ONE Administration Ketorolac Tromethamine Confirm 11/08/19 11:13 Toradol 30 Mg Injection Administered 11/08/19 11:14 Dose 30 mg .ROUTE .STK-MED ONE Ketorolac Tromethamine 30 mg 11/08/19 14:15 11/08/19 17:40 Toradol 30 Mg Injection IV 11/13/19 14:14 30 mg Q6H PRN PRN Administration PAIN Morphine Sulfate 4 mg 11/08/19 10:53 11/08/19 11:14 Morphine Sulfate 4 Mg Inj IV 11/08/19 10:54 4 mg STAT ONE Administration Morphine Sulfate Confirm 11/08/19 11:13 Morphine Sulfate 4 Mg Inj Administered 11/08/19 11:14 Dose 4 mg .ROUTE .STK-MED ONE Morphine Sulfate 4 mg 11/08/19 14:15 11/08/19 14:37 Morphine Sulfate 4 Mg Inj IV 11/13/19 14:14 4 mg Q4H PRN PRN Administration PAIN Morphine Sulfate 3 mg 11/08/19 17:51 Morphine Sulfate 4 Mg Inj IV 11/13/19 17:50 Q1H PRN PAIN Ondansetron HCl 4 mg 11/08/19 10:53 11/08/19 11:14 Zofran 4 Mg/2 Ml Vial IV 11/08/19 10:54 4 mg STAT ONE Administration Ondansetron HCl Confirm 11/08/19 11:12 Zofran 4 Mg/2 Ml Vial Administered 11/08/19 11:13 Dose 4 mg .ROUTE .STK-MED ONE Ondansetron HCl 4 mg 11/08/19 14:15 11/08/19 17:40 Zofran 4 Mg/2 Ml Vial IV 12/08/19 14:14 4 mg Q6H PRN PRN Administration NAUSEA/VOMITING Ondansetron HCl Confirm 11/08/19 16:47 Zofran 4 Mg/2 Ml Vial Administered 11/08/19 16:48 Dose 4 mg .ROUTE .STK-MED ONE Propofol Confirm 11/08/19 15:52 Diprivan 200 Mg/20 Ml Administered 11/08/19 15:53 Dose 200 mg IV .STK-MED ONE Rocuronium Holabird Confirm 11/08/19 15:52 Zemuron 100 Mg/10 Ml Administered 11/08/19 15:53 Dose 30 mg .ROUTE .STK-MED ONE Succinylcholine Chloride Confirm 11/08/19 15:52 Quelicin Fliptop 200 Mg/10 Ml Administered 11/08/19 15:53 Dose 100 mg .ROUTE .STK-MED ONE Sugammadex Sodium Confirm 11/08/19 16:47 Bridion 200mg/2ml Administered 11/08/19 16:48 Dose 200 mg IV .STK-MED ONE Intake & Output (Last 24 hours) 11/07/19 11/08/19 11/09/19 11/10/19 11:59 11:59 11:59 11:59 Intake Total 3080 Balance 3080 Weight 103.419 kg 103 kg Laboratory Results (Last 24 hours) 11/09/19 11/09/19 04:15 04:15 WBC 9.9 RBC 4.45 Hgb 12.6 Hct 38.6 MCV 86.7 MCH 28.3 MCHC 32.6 RDW 14.2 H Plt Count 357 MPV 9.6 Gran % 85.5 H Eos # (Auto) 0.01 Absolute Lymphs (auto) 1.29 Absolute Monos (auto) 0.13 Lymphocytes % 13.0 L Monocytes % 1.3 Eosinophils % 0.1 Basophils % 0.1 Absolute Granulocytes 8.47 H Basophils # 0.01 Sodium 135 L Potassium 4.3 Chloride 101 Carbon Dioxide 25 Anion Gap 13.2 BUN 13 Creatinine 0.63 Estimated GFR > 60.0 Glucose 270 H Calcium 8.9 D Total Bilirubin 0.60 AST 20 ALT 23 Alkaline Phosphatase 85 Serum Total Protein 7.5 Albumin 3.9 Orders (Last 24 hours) Category Date Time Status Up With Assistance ROUTINE Activity 11/08/19 14:15 Active Ambulate Patient TID Care 11/08/19 17:44 Active Code Status Order ROUTINE Care 11/08/19 14:15 Active IV Care Q6H Care 11/08/19 14:15 Active Ice Pack, Apply PRN Care 11/08/19 17:44 Active Nursing [Miscellaneous Nursing Order] ROUTINE Care 11/08/19 17:50 Active Nursing [Miscellaneous Nursing Order] ROUTINE Care 11/08/19 17:54 Active Sequential Compression Device Q6H Care 11/08/19 17:44 Active Vital Signs Q4H Care 11/08/19 14:15 Active Weight,Daily 0600 Care 11/08/19 14:15 Active Low Fat Diet 11/09/19 Breakfast Active NPO Diet 11/08/19 14:15 Completed GALLBLADDER [US] Stat Exams 11/08/19 12:43 Completed CBC W DIFF AM.LAB Lab 11/09/19 04:15 Completed CMP AM.LAB Lab 11/09/19 04:15 Completed Surgical Pathology Routine Lab 11/08/19 16:49 Received Bupivacaine HCl 0.25% 10 ml [Sensorcaine 0.25% 10 ML Med 11/08/19 15:35 Discontinued ] 10 ml .ROUTE .STK-MED ONE Cefoxitin/Dextrose 2Gm Premix* [Mefoxin 2 gm Premix] Med 11/08/19 16:00 Discontinued 2 gm in 50 ml IV ONCALLTOOR Cyclobenzaprine HCl 10 mg [Cyclobenzaprine 10 MG] Med 11/08/19 14:54 Active 5 mg PO QDP PRN Dexamethasone 4 mg [Decadron 4 MG INJ] Med 11/08/19 16:47 Discontinued 8 mg .ROUTE .STK-MED ONE Dextrose 5%-Lr 1000 ml [Dextrose 5%-Lr IV Solution 1000 Med 11/08/19 14:15 Discontinued ML] 1,000 ml IV 100 mls/hr Esmolol HCl 100 mg/10 ml [Brevibloc 100 mg/10 ml] Med 11/08/19 16:27 Discontinued 100 mg IV .STK-MED ONE Fentanyl Citrate 100 Mcg/2 ml* [Sublimaze 100 Mcg/2 ml* Med 11/08/19 15:52 Discontinued ] 100 mcg .ROUTE .STK-MED ONE Glyburide 5 mg [Micronase 5 MG] Med 11/09/19 10:00 Active 5 mg PO DAILY Hold Metformin [Hold Metformin Products For 48 Hours] Med 11/09/19 10:00 Active 1 each MC DAILY Hydrocodone/APAP 5/325 [Oblong 5/325 mg] Med 11/08/19 17:52 Active 1 tab PO Q4H PRN PRN KETOROLAC trometh 30 mg Inj [TORAdol 30 mg Injection Med 11/08/19 14:15 Discontinued ] 30 mg IV Q6H PRN PRN Morphine Sulfate 4 mg Inj Med 11/08/19 17:51 Discontinued 3 mg IV Q1H PRN Morphine Sulfate 4 mg Inj Med 11/09/19 07:00 Active 3 mg IV Q1H PRN PRN Morphine Sulfate 4 mg Inj Med 11/08/19 14:15 Discontinued 4 mg IV Q4H PRN PRN NaCl 0.9% 1000 ml [Sodium Chloride 0.9% 1000 ML] 1,000 Med 11/08/19 15:30 Active ml IV 100 mls/hr Ondansetron HCl 4 mg/2 ml [Zofran 4 MG/2 ML VIAL] Med 11/08/19 16:47 Discontinued 4 mg .ROUTE .STK-MED ONE Ondansetron HCl 4 mg/2 ml [Zofran 4 MG/2 ML VIAL] Med 11/08/19 14:15 Discontinued 4 mg IV Q6H PRN PRN Ondansetron HCl 4 mg/2 ml [Zofran 4 MG/2 ML VIAL] Med 11/08/19 17:52 Active 4 mg IV Q6H PRN PRN Propofol 200 mg/20 ml [Diprivan 200 mg/20 ml] Med 11/08/19 15:52 Discontinued 200 mg IV .STK-MED ONE Ringers Solution,Lactated [Lactated Ringers] 1,000 ml Med 11/08/19 15:35 Discontinued IV UD Rocuronium Holabird 100 mg/10Ml [Zemuron 100 MG/10 ML] Med 11/08/19 15:52 Discontinued 30 mg .ROUTE .STK-MED ONE Simvastatin 20Mg [Zocor 20Mg] Med 11/08/19 22:00 Active 20 mg PO HS Succinylcholine Chloride 200Mg [Quelicin Fliptop 200 MG Med 11/08/19 15:52 Discontinued /10 ML] 100 mg .ROUTE .STK-MED ONE Sugammadex Sodium [Bridion 200Mg/2Ml] Med 11/08/19 16:47 Discontinued 200 mg IV .STK-MED ONE EKG ROUTINE RT 11/08/19 15:11 Active Patient Care Notes (Last 24 hours) 11/08/19 17:39 Nursing Note by Anabelle Londono BACK FROM OR Initialized on 11/08/19 17:39 - END OF NOTE 11/08/19 15:47 Nursing Note by Anabelle Londono to OR. Initialized on 11/08/19 15:47 - END OF NOTE Hospital Summary - Vitals & Intake/Output Vital Signs: Vital Signs Temperature 98.3 F 11/09/19 12:00 Pulse Rate 91 H 11/09/19 12:00 Respiratory Rate 18 11/09/19 12:00 Blood Pressure 134/64 11/09/19 12:00 O2 Sat by Pulse Oximetry 95 11/09/19 12:00 Intake & Output: Intake & Output 11/07/19 11/08/19 11/09/19 11/10/19 11:59 11:59 11:59 11:59 Intake Total 3080 Balance 3080 Weight 103.419 kg 103 kg - Lab Result Diagrams: 11/09/19 04:15 11/09/19 04:15 Lab Results-Last 24 Hrs: Lab Results-Last 24 Hours 11/09/19 11/09/19 Range/Units 04:15 04:15 WBC 9.9 (4.0-10.5) K/mm3 RBC 4.45 (4.1-5.4) M/mm3 Hgb 12.6 (12.0-16.0) gm/dl Hct 38.6 (35-47) % MCV 86.7 (78-100) fl MCH 28.3 (26-32) pg MCHC 32.6 (32-36) g/dl RDW 14.2 H (11.5-14.0) % Plt Count 357 (150-450) K/mm3 MPV 9.6 (7.5-11.0) fl Gran % 85.5 H (36.0-66.0) % Eos # (Auto) 0.01 (0-0.5) Absolute Lymphs (auto) 1.29 (1.0-4.6) Absolute Monos (auto) 0.13 (0.0-1.3) Lymphocytes % 13.0 L (24.0-44.0) % Monocytes % 1.3 (0.0-12.0) % Eosinophils % 0.1 (0.00-5.0) % Basophils % 0.1 (0.0-0.4) % Absolute Granulocytes 8.47 H (1.4-6.9) Basophils # 0.01 (0-0.4) Sodium 135 L (137-145) mmol/L Potassium 4.3 (3.5-5.1) mmol/L Chloride 101 (98-107) mmol/L Carbon Dioxide 25 (22-30) mmol/L Anion Gap 13.2 (5-15) MEQ/L BUN 13 (7-17) mg/dL Creatinine 0.63 (0.52-1.04) mg/dL Estimated GFR > 60.0 ML/MIN Glucose 270 H (74-106) mg/dL Calcium 8.9 D (8.4-10.2) mg/dL Total Bilirubin 0.60 (0.2-1.3) mg/dL AST 20 (14-36) U/L ALT 23 (0-35) U/L Alkaline Phosphatase 85 (38-126) U/L Serum Total Protein 7.5 (6.3-8.2) g/dL Albumin 3.9 (3.5-5.0) g/dL - Radiology Exams Ordered Rad Exams-Entire Visit: Radiology Procedures Category Date Time Status ABDOMEN AND PELVIS W CONTRAST [CT] Stat Exams 11/08/19 10:54 Completed GALLBLADDER [US] Stat Exams 11/08/19 12:43 Completed - Procedures and Test Procedures and Tests throughout Hospitalization: Therapy Orders & Screens 11/08/19 15:11 EKG ROUTINE Comment: Diagnosis: Impacted gallstone in gallbladder ampula - Discharge Disposition: Home, Self-Care Condition: Stable Prescriptions: New Hydrocodone/APAP 5-325 Tab^^^ [Oblong 5-325 Tablet^^^] 1 each PO Q4HPRN PRN # 22 tablet MDD 6 PRN Reason: Pain Continue Hydrocodone/APAP 5-325 Tab^^^ [Oblong 5-325 Tablet^^^] 1 tab PO Q6HPRN PRN MDD 6 PRN Reason: Pain Glyburide 5 mg PO DAILY Cyclobenzaprine HCl [Flexeril] 5 mg PO DAILY PRN PRN Reason: Pain Atorvastatin Calcium [Lipitor] 20 mg PO HS Instructions: Cholecystectomy (DC) Follow up with: LOBITO CLAYTON [COURTESY STAFF] - 11/14/19 8:00 am (AT [facility] )
== END 2019-11-09 13:45 | disposition home or self-care (01) ==
LOC: ED 10:34 → MED SURG 14:11
PROVIDERS: ADMIT General Practice; ATTEND General Practice
DX: K80.10 Calculus of gallbladder with chronic cholecystitis without obstruction (principal); E11.9 Type 2 diabetes mellitus without complications; E78.5 Hyperlipidemia, unspecified; G89.29 Other chronic pain; M54.2 Cervicalgia; Z85.41 Personal history of malignant neoplasm of cervix uteri; Z79.899 Other long term (current) drug therapy
CPT/HCPCS: 36000; 36415; 74177; 76705; 80048; 80053; 80076; 81001; 83690; 85025; 93005; 96374; 96375; 99285; G0378; J0330; J0694; J1100; J1885; J2270; J2405; J2704; J3010; A9270-GY

== ENCOUNTER 2021-04-03 06:37 | Day surgery (SDC) | payer BC ==
[2021-04-03] MEDS ORDERED: Decadron 4 MG INJ IV ONE (06:38)
[2021-04-03] MEDS ORDERED: BUPIVACAINE 0.5% VIAL IJ ONE (06:38)
[2021-04-03] MEDS ORDERED: DIPRIVAN 200 MG/20 ML IV ONE ×2 (08:50→09:11)
--- NOTE | 2021-04-03 09:40 | XRAY ---
Indication: Left C2-C4 MBB. Intraoperative fluoroscopy provided for 43 seconds. 2 digital spot image submitted for interpretation demonstrates posterior needle tips projecting over the expected left C2-C4 nerve roots. Correlate with intraoperative findings/report.
--- NOTE | 2021-04-03 09:42 | XRAY ---
43 seconds fluoroscopy time in surgery for left C2-C4 MBB.
[2021-04-03] MEDS ORDERED: Lactated Ringers 1,000 ML IV ONE (11:30)
== END 2021-04-03 09:25 | disposition home or self-care (01) ==
LOC: SDC-PAIN 06:37
PROVIDERS: ATTEND Psychiatry & Neurology Pain Medicine
DX: M47.812 Spondylosis without myelopathy or radiculopathy, cervical region (principal); E11.9 Type 2 diabetes mellitus without complications; Z79.899 Other long term (current) drug therapy
CPT/HCPCS: 64490; 64491; 72040; 77002; 82947; J1100; J2704

== ENCOUNTER 2021-11-27 07:20 | Day surgery (SDC) | payer BC ==
[2021-11-27] MEDS ORDERED: BUPIVACAINE 0.5% VIAL IJ ONE (07:21)
[2021-11-27] MEDS ORDERED: Decadron 4 MG INJ IV ONE (07:21)
[2021-11-27] MEDS ORDERED: DIPRIVAN 200 MG/20 ML IV ONE (08:56)
[2021-11-27] MEDS ORDERED: Lactated Ringers 1,000 ML IV ONE (09:24)
--- NOTE | 2021-11-27 10:11 | XRAY ---
Indication: Left C2-C4 MBB. Intraoperative fluoroscopy provided for 29 seconds. 2 digital spot image submitted for interpretation demonstrates posterior needle tips projecting over the expected left C2-C4 nerve roots. Correlate with intraoperative findings/report.
--- NOTE | 2021-11-27 10:13 | XRAY ---
29 seconds fluoroscopy time in surgery for left C2-C4 MBB.
== END 2021-11-27 09:27 | disposition home or self-care (01) ==
LOC: SDC-PAIN 07:20
PROVIDERS: ATTEND Psychiatry & Neurology Pain Medicine
DX: M47.812 Spondylosis without myelopathy or radiculopathy, cervical region (principal); E11.9 Type 2 diabetes mellitus without complications; Z79.899 Other long term (current) drug therapy
CPT/HCPCS: 64490; 64491; 72040; 77002; 82947; J1100; J2704

== ENCOUNTER 2025-07-11 05:46 | Day surgery (SDC) | payer OTHER ==
[2025-07-11] MEDS ORDERED: Lactated Ringers 1,000 ML IV ONE (06:48)
[2025-07-11] MEDS ORDERED: Lactated Ringers 1,000 ML IV SCH (07:00)
[2025-07-11] MEDS ORDERED: propofoL IV ONE ×2 (07:43→08:14)
[2025-07-11] MEDS ORDERED: Versed 2 MG/2 ML Injection ONE (07:43)
[2025-07-11] MEDS ORDERED: Zofran 4 MG/2 ML VIAL ONE (09:03)
[2025-07-11 09:20] VITALS: RESP 16; O2SAT 95
[2025-07-11 09:31] VITALS: BP 155/84; PULSE 77; TEMP 97
--- NOTE | 2025-07-11 17:18 | OP ---
SURGERY DATE/TIME: 07/11/2025 [id number] PREOPERATIVE DIAGNOSIS: Positive Cologuard. POSTOPERATIVE DIAGNOSIS: Two colon polyps. PROCEDURE: Colonoscopy with cold forceps biopsy and hot snare removal of polyps. SURGEON: Cayden Chung MD ANESTHESIA: Medication given by the anesthesia department. INDICATION: The patient is a 59-year-old white female presenting now for positive Cologuard testing for further evaluation. The patient was felt to need colon endoscopic evaluation. She was apprised of the risks of the procedure including risk of perforation, phlebitis, untoward reaction to medication, bleeding, and missed lesions. The patient verbalized her understanding and desired to have the procedure performed. DESCRIPTION OF PROCEDURE AND FINDINGS: Patient was given medication by the anesthesia department. She had continuous pulse oximetry, ECG monitoring, and intermittent blood pressure monitoring during the examination. She was placed in the left lateral decubitus position. Digital rectal examination was performed and revealed normal anal sphincter tone and no masses. The flexible Olympus videocolonoscope was used to intubate the rectum. A view of the colon was developed sequentially to the cecum. Upon insertion and withdrawal, including retroflexed view of the rectum, were noted 2 separate polyps in the transverse and descending colon. The first biopsied and removed using two passes of a cold forceps instrument and the second was retrieved after being removed by the hot snare polypectomy technique. No other mucosal lesions being encountered, the scope was removed. The patient tolerated the procedure well and was sent back to outpatient recovery in good condition. The prep was noted to be fair to good.
== END 2025-07-11 09:39 | disposition home or self-care (01) ==
LOC: SDC 05:46
PROVIDERS: ATTEND Family Medicine
DX: D12.4 Benign neoplasm of descending colon (principal); D12.3 Benign neoplasm of transverse colon; R19.5 Other fecal abnormalities; E11.9 Type 2 diabetes mellitus without complications